=== PATIENT | male | born 1980 | race African-American/Black ===

== ENCOUNTER 2016-09-15 13:39 | Emergency (ER) | payer BC, MEDICAID ==
[~2016-09-15] VITALS: Ht 170.2 cm; Wt 70.0 kg
[~2016-09-15 13:39] MED LIST: AZIT250T94 PO; D-ME473S2 PO; IBUP-1542 PO
[2016-09-15 13:43] VITALS: Ht 170.2 cm; Wt 70.0 kg
--- NOTE | 2016-09-15 14:14 | ERD ---
ER Documentation Chief Complaint Date/Time DATE: 09/15/16 TIME: 14:13 Chief Complaint mid ap x months with nausea; also c/o nosebleed x 3 days HPI 36-year-old male otherwise healthy comes in with mid abdominal pain for approximately 6 months now, with associated nausea. Patient states that it comes and goes and is currently asymptomatic at this time. He states that it is in his mid abdomen and left upper and right upper quadrant and worse when he rotates his chest. Patient seen at [facility] last year for the same problem and reports that all of his labs and tests are normal. He has had over the last 3 days. He has not had any fevers, chills, vomiting or diarrhea, no blood in his stools. He denies any chest pain, shortness of breath ,. He denies URI symptoms. ROS All systems reviewed and are negative except as per history of present illness. Medications Home Meds Active Scripts Ranitidine Hcl* (Zantac*) 150 Mg Tablet, 150 MG PO DAILY Y for EPIGASTRIC PAIN, #30 TAB Prov:RISA GIBBS PA-C 09/15/16 Ibuprofen* (Motrin*) 600 Mg Tab, 600 MG PO Q6, #14 TAB Prov:JOSEPH GRANGER MD 05/26/15 Dextromethorphan Hb-Promethazine Hcl* (Promethazine DM* Syrup) 473 Ml Syrup, 5 ML PO Q6 Y for COUGH for 5 Days, ML Prov:JOSEPH GRANGER MD 05/26/15 Azithromycin* (Zithromax*) 250 Mg Tablet, 250 MG PO .ZPACK DIRECTED, #6 TAB TAKE 500 MG (2 TABS) THE FIRST DAY THEN 250 MG (1 TAB) DAYS 2-5 Prov:JOSEPH GRANGER MD 05/26/15 Allergies Allergies: Coded Allergies: No Known Allergy (Unverified , 05/26/15) PMhx/Soc History of Surgery: No Anesthesia Reaction: No Hx Neurological Disorder: No Hx Respiratory Disorders: No Hx Cardiac Disorders: No Hx Psychiatric Problems: No Hx Miscellaneous Medical Probl: No Hx Alcohol Use: No Hx Substance Use: No Hx Tobacco Use: No Physical Exam Vitals Vital Signs Date Time Temp Pulse Resp B/P Pulse Ox O2 Delivery O2 Flow Rate FiO2 09/15/16 13:43 100.3 98 18 129/79 100 Physical Exam General: Well-developed, well-nourished. The patient appears in no acute distress. HEENT: Head is normocephalic, atraumatic. No scleral icterus. Neck: Supple. Nontender. Lungs: Clear to auscultation. Normal air movement. Heart: Regular rate and rhythm. S1 and S2 are normal. No murmurs, gallops, or rubs. Abdomen: Soft, nontender, nondistended. Bowel sounds are normoactive. Extremities: No clubbing or cyanosis. Normal pulses. Moving extremities x 4. No weakness. Neurologic: Alert and oriented 3. No focal deficits. Skin: Normal turgor. No rash or lesions. Result Diagram: 09/15/16 1415 09/15/16 1415 Results 24 hrs Laboratory Tests Test 09/15/16 14:15 White Blood Count 4.610^3/ul Red Blood Count 5.1110^6/ul Hemoglobin 13.7g/dl Hematocrit 41.9% Mean Corpuscular Volume 82.0fl Mean Corpuscular Hemoglobin 26.8pg Mean Corpuscular Hemoglobin Concent 32.7g/dl Red Cell Distribution Width 12.2% Platelet Count 53963^3/UL Mean Platelet Volume 10.4fl Neutrophils % 43.7% Lymphocytes % 42.2% Monocytes % 6.1% Eosinophils % 7.6% Basophils % 0.4% Nucleated Red Blood Cells % 0.0/100WBC Neutrophils # 2.010^3/ul Lymphocytes # 1.910^3/ul Monocytes # 0.310^3/ul Eosinophils # 0.410^3/ul Basophils # 0.010^3/ul Nucleated Red Blood Cells # 0.010^3/ul Urine Color LT. YELLOW Urine Clarity CLEAR Urine pH 7.5 Urine Specific [place] 1.015 Urine Ketones NEGATIVE Urine Nitrite NEGATIVE Urine Bilirubin NEGATIVE Urine Urobilinogen 1.0 E.U./dL Urine Leukocyte Esterase NEGATIVE Urine Microscopic RBC NONE SEEN/HPF Urine Microscopic WBC 0-2/HPF Urine Epithelial Cells RARE Urine Bacteria RARE Urine Hemoglobin NEGATIVE Urine Glucose NEGATIVE% Urine Total Protein TRACE Sodium Level 144mmol/L Potassium Level 3.8mmol/L Chloride Level 103mmol/L Carbon Dioxide Level 28mmol/L Anion Gap 17 Blood Urea Nitrogen 13mg/dl Creatinine 1.11mg/dl Glucose Level 102mg/dl Calcium Level 9.3mg/dl Total Bilirubin 1.1mg/dl Direct Bilirubin 0.00mg/dl Indirect Bilirubin 1.1mg/dl Aspartate Amino Transf (AST/SGOT) 42IU/L Alanine Aminotransferase (ALT/SGPT) 44IU/L Alkaline Phosphatase 62IU/L Total Protein 7.8g/dl Albumin 4.5g/dl Globulin 3.30g/dl Albumin/Globulin Ratio 1.36 Lipase 404U/L Procedures/MDM 36-year-old male comes in with intermittent abdominal pain for a year now, he has had a workup done at a different emergency department, and today's labs appear to be unremarkable, however he does have mildly elevated lipase but denies any history of alcohol abuse or heavy drinking. He does not have any leukocytosis, transaminitis. He does not have any jaundice, febrile illness. Patient denies history of fever, his temperature was rechecked and was 98.8. Differential diagnosis includes pancreatitis, gastritis, gastroenteritis, acute coronary syndrome, pulmonary embolus, acute hepatobiliary process, hepatitis, acute appendicitis, and among others. He was given a copy of all his labs, he does have intermittent abdominal pain in the mid abdomen, and will be given ranitidine, he was advised to recheck with his primary care doctor, if symptoms do not improve and he may seek secondary evaluation from a boot and saddle repair person. Departure Diagnosis: Primary Impression: Abdominal pain Condition: RISA Olvera PA-C September 15, 2016 14:14
[2016-09-15 14:36] LABS: ADD UMIC YES; URINE BILIRUBIN (Dip) NEGATIVE (NEGATIVE); URINE BLOOD (Dip) NEGATIVE (NEGATIVE); URINE COLOR LT. YELLOW (YELLOW); URINE GLUCOSE (Dip) NEGATIVE (NEGATIVE); URINE KETONES (Dip) NEGATIVE (NEGATIVE); URINE LEUKOCYTE ESTERASE (Dip) NEGATIVE (NEGATIVE); URINE NITRITE (Dip) NEGATIVE (NEGATIVE); URINE TOTAL PROTEIN (Dip) TRACE (NEGATIVE); URINE UROBILINOGEN (Dip) 1.0 E.U./dL (0.1-1.0)
--- NOTE | 2016-09-15 14:38 | RADRPT ---
PROCEDURE: XR Chest. CLINICAL INDICATION: Chest pain/abdominal pain TECHNIQUE: Chest AP portable. COMPARISON: No comparison available. FINDINGS: The mediastinal structures are unremarkable. The heart is normal in size and configuration. The pu lmonary vascularity is normal. The lung pérez are unremarkable. No consolidation is identified. The pleural spaces are unremarkable. The axial skeleton is unremarkable. IMPRESSION: No active intrathoracic disease. RPTAT: HGDB .Deny Reza MD, MD Date Time Electronically viewed and signed by .Deny Reza MD, on 09/15/2016 14:38 .B/
[2016-09-15 14:41] LABS: ADD SCAN DIFF NO
[2016-09-15 14:44] LABS: BASOPHILS % 0.4 % (0.0-2.0); EOSINOPHILS # 0.4 10^3/ul (0.0-0.5); EOSINOPHILS % 7.6 % (0.0-7.0); HEMATOCRIT 41.9 % (42.0-52.0); HEMOGLOBIN 13.7 g/dl (14.0-18.0); LYMPHOCYTES # 1.9 10^3/ul (0.8-2.9); LYMPHOCYTES % 42.2 % (15.0-51.0); MEAN CORPUSCULAR HEMOGLOBIN 26.8 pg (29.0-33.0); MEAN CORPUSCULAR HGB CONC 32.7 g/dl (32.0-37.0); MEAN PLATELET VOLUME 10.4 fl (7.4-10.4); MONOCYTE # 0.3 10^3/ul (0.3-0.9); MONOCYTES % 6.1 % (0.0-11.0); NEUTROPHILS % 43.7 % (39.0-77.0); PLATELET COUNT 187 10^3/UL (140-415); RED BLOOD COUNT 5.11 10^6/ul (4.70-6.10); RED CELL DISTRIBUTION WIDTH 12.2 % (11.5-14.5); WHITE BLOOD COUNT 4.6 10^3/ul (4.8-10.8)
[2016-09-15 14:47] LABS: BACTERIA,URINE RARE; URINE RBCS NONE SEEN /HPF (0)
[2016-09-15 15:00] LABS: ALBUMIN 4.5 g/dl (3.3-4.9)
[2016-09-15 15:01] LABS: POTASSIUM 3.8 mmol/L (3.5-5.1)
[2016-09-15 15:02] LABS: CREATININE 1.11 mg/dl (0.61-1.24)
[2016-09-15 15:03] LABS: ALBUMIN/GLOBULIN RATIO 1.36; BILIRUBIN,INDIRECT 1.1 mg/dl (0-1.1); BILIRUBIN,TOTAL 1.1 mg/dl (0.2-1.3); CALCIUM 9.3 mg/dl (8.4-10.2); TOTAL PROTEIN 7.8 g/dl (6.1-8.1)
[2016-09-15] MEDS ORDERED: RANI150T9 PO (15:39)
== END 2016-09-15 15:46 | disposition home or self-care (01) ==
LOC: FTE 13:39
DX: R10.11 Right upper quadrant pain (principal)
CPT/HCPCS: 71010; 80053; 81001; 81003; 83690; 85025

== ENCOUNTER 2017-01-08 10:09 | Emergency (ER) | payer BC ==
[~2017-01-08] VITALS: Ht 152.4 cm; Wt 69.5 kg
[~2017-01-08 10:09] MED LIST changes: +RANI150T9 PO
[2017-01-08 10:12] VITALS: Ht 152.4 cm; Wt 69.5 kg
[2017-01-08] MEDS ORDERED: GUAI120S26 PO (10:23)
[2017-01-08] MEDS ORDERED: CETI10CA PO (10:23)
--- NOTE | 2017-01-08 10:29 | ERD ---
ER Documentation Chief Complaint Date/Time DATE: 01/08/17 TIME: 10:26 Chief Complaint cough, runny nose, congestion HPI 36-year-old male patient with no significant past medical history presents to the ED complaining of a productive cough, rhinorrhea that started 2 days ago. States that he feels short of breath and feels like he has postnasal drip. Denies any wheezing, shortness of breath, chest pain, abdominal pain, nausea, vomiting, dyspnea on exertion, orthopnea, ear pain. Denies any sick contacts. Denies any recent traveling. Denies any leg swelling. ROS All systems reviewed and are negative except as per history of present illness. Medications Home Meds Active Scripts Cetirizine Hcl* (Zyrtec*) 10 Mg Capsule, 10 MG PO DAILY, #10 TAB.CHEW Prov:TOYIN GARZA PA-C 01/08/17 Mfpjvumisze-C-Nkyrcvdeyv Hb* (Guaifenesin* DM Syrup) 120 Ml Syrup, 10 ML PO Q4H Y for COUGH, #120 ML Prov:TOYIN GARZA PA-C 01/08/17 Ranitidine Hcl* (Zantac*) 150 Mg Tablet, 150 MG PO DAILY Y for EPIGASTRIC PAIN, #30 TAB Prov:RISA GIBBS PA-C 09/15/16 Ibuprofen* (Motrin*) 600 Mg Tab, 600 MG PO Q6, #14 TAB Prov:JOSEPH GRANGER MD 05/26/15 Dextromethorphan Hb-Promethazine Hcl* (Promethazine DM* Syrup) 473 Ml Syrup, 5 ML PO Q6 Y for COUGH for 5 Days, ML Prov:JOSEPH GRANGER MD 05/26/15 Azithromycin* (Zithromax*) 250 Mg Tablet, 250 MG PO .ZPACK DIRECTED, #6 TAB TAKE 500 MG (2 TABS) THE FIRST DAY THEN 250 MG (1 TAB) DAYS 2-5 Prov:JOSEPH GRANGER MD 05/26/15 Allergies Allergies: Coded Allergies: No Known Allergy (Unverified , 05/26/15) PMhx/Soc History of Surgery: No Anesthesia Reaction: No Hx Neurological Disorder: No Hx Respiratory Disorders: No Hx Cardiac Disorders: No Hx Psychiatric Problems: No Hx Miscellaneous Medical Probl: No Hx Alcohol Use: No Hx Substance Use: No Hx Tobacco Use: No Physical Exam Vitals Vital Signs Date Time Temp Pulse Resp B/P Pulse Ox O2 Delivery O2 Flow Rate FiO2 01/08/17 10:12 98.2 110 20 141/86 99 Physical Exam Const: Olh-ysa-zbizfavqv, well-nourished. In no acute distress. Head: Atraumatic, normocephalic Eyes: Normal Conjunctiva without injection. No purulent discharge. PERRL. EOMI ENT: Normal external ear. Ear canal without erythema. Tympanic membrane pearly scott without effusion or bulging. Nasal canal clear with normal turbinates. Moist oropharynx without tonsillar exudates. Non-erythematous pharynx. Uvula midline. No drooling. No trismus. Neck: Full range of motion. No meningismus. No cervical lymphadenopathy. Resp: Clear to auscultation bilaterally. No wheezing, rhonchi, rales, or crackles. No accessory muscle use. No retractions. Cardio: Regular rate and rhythm. No murmurs, rubs or gallops. Abd: Soft, non tender, non distended. Normal bowel sounds. No palpable masses. No rebound tenderness. No guarding. Skin: No petechiae or rashes Back: No midline tenderness. No CVA tenderness. Ext: No cyanosis, or edema. Neur: Awake and alert. Psych: Normal Mood and Affect Procedures/MDM 36-year-old male patient with no significant past medical history presents the ED complaining of a productive cough, rhinorrhea, congestion that started 2 days ago. Patient is afebrile and nontoxic-appearing. Patient has normal vital signs. This patient presents to the ED with symptoms consistent with a viral acute upper respiratory infection. Patient's physical exam include lungs which were clear to auscultation and a normal pulse oximetry. There is a low suspicion for pneumonia, pneumothorax, mononucleosis, pulmonary embolism, epiglottitis, otitis media, otitis externa, viral/strep pharyngitis, sinusitis, peritonsillar abscess, mastoiditis, retropharyngeal abscess, meningitis, sepsis , acute abdomen or other emergent conditions. Fluids, rest, and symptomatic treatment are recommended for the management of patient's symptoms. Discharge medications: Zyrtec, Guaifenesin DM Patient was instructed to return to the ED for any new or worsening symptoms. They should otherwise follow up with the primary care provider within 1-2 days. The patient's questions were answered at the time of discharge. Patient understood and agreed with discharge management. Departure Diagnosis: Primary Impression: URI, acute Condition: Stable Patient Instructions: Uri, Viral, No Abx (Adult) Referrals: MAT BLANCO MD,JOSÉ ANTONIO CULVER,HEBER Casarez MD [facility] YOU HAVE RECEIVED A MEDICAL SCREENING EXAM AND THE RESULTS INDICATE THAT YOU DO NOT HAVE A CONDITION THAT REQUIRES URGENT TREATMENT IN THE EMERGENCY DEPARTMENT. FURTHER EVALUATION AND TREATMENT OF YOUR CONDITION CAN WAIT UNTIL YOU ARE SEEN IN YOUR DOCTORS OFFICE WITHIN THE NEXT 1-2 DAYS. IT IS YOUR RESPONSIBILITY TO MAKE AN APPOINTMENT FOR FOLOW-UP CARE. IF YOU HAVE A PRIMARY DOCTOR --you should call your primary doctor and schedule an appointment IF YOU DO NOT HAVE A PRIMARY DOCTOR YOU CAN CALL OUR PHYSICIAN REFERRAL HOTLINE AT IF YOU CAN NOT AFFORD TO SEE A PHYSICIAN YOU CAN CHOSE FROM THE FOLLOWING [facility] [address] [facility]. [facility] [address] [facility] [address] [facility] [address] [facility]. [facility] [address] [facility]. [facility] [address] [facility]. [facility] YOU HAVE RECEIVED A MEDICAL SCREENING EXAM AND THE RESULTS INDICATE THAT YOU DO NOT HAVE A CONDITION THAT REQUIRES URGENT TREATMENT IN THE EMERGENCY DEPARTMENT. FURTHER EVALUATION AND TREATMENT OF YOUR CONDITION CAN WAIT UNTIL YOU ARE SEEN IN YOUR DOCTORS OFFICE WITHIN THE NEXT 1-2 DAYS. IT IS YOUR RESPONSIBILITY TO MAKE AN APPOINTMENT FOR FOLOW-UP CARE. IF YOU HAVE A PRIMARY DOCTOR --you should call your primary doctor and schedule and appointment IF YOU DO NOT HAVE A PRIMARY DOCTOR YOU CAN CALL OUR PHYSICIAN REFERRAL HOTLINE AT . IF YOU CAN NOT AFFORD TO SEE A PHYSICIAN YOU CAN CHOSE FROM THE FOLLOWING [facility] INSTITUTIONS: [facility] [address] [place] [address] [facility] [address] [place] [address] [facility] + [facility] [address] [place] [address] [facility] URGENT CARE/SPECIALTIES Additional Instructions: Call your primary care doctor TOMORROW for an appointment during the next 2-3 days.See the doctor sooner or return here if your condition worsens before your appointment time. TOYIN GARZA PA-C Jan 08, 2017 10:29
== END 2017-01-08 11:00 | disposition home or self-care (01) ==
LOC: FTE 10:09
DX: J06.9 Acute upper respiratory infection, unspecified (principal)
CPT/HCPCS: 99283